=== PATIENT | male | born 1960 | race Caucasian/White ===

== ENCOUNTER 2019-03-30 19:48 | Inpatient (IN) ==
[2019-03-30 20:55] LABS: ABG Base Excess 4 mEq/L (-2 to 3); ABG HCO3 27 mEq/L (21-27); ABG Oxygen Saturation 96 % (95-98); ABG PCO2 35 mmHg (35-45); ABG PO2 76 mmHg (85-104); ABG TCO2 28 mEq/L (20-26)
[2019-03-30 21:14] LABS: Hematocrit 38.8 % (37.5-50.1); Hemoglobin 13.8 g/dL (12.9-16.9); Mean Corpuscular HGB Conc 35.6 g/dL (31.6-35.5); Mean Corpuscular Hemoglobin 34.9 pg (28.0-33.3); Mean Corpuscular Volume 98.2 fL (83.0-100.0); Mean Platelet Volume 9.4 fL (9.4-12.4); Platelet Count 302 K/mcL (140-400); Red Blood Count 3.95 M/mcL (4.19-5.50); Red Cell Distribution Width 12.5 % (11.5-14.5); White Blood Count 11.1 K/mcL (4.3-11.1)
[2019-03-30 21:25] LABS: Albumin 3.7 g/dL (3.5-5.7); BUN/Creatinine Ratio 14 (6-26); Bilirubin,Direct 0.1 mg/dL (0.0-0.2); Bilirubin,Indirect 0.4 mg/dL (0.0-1.0); Bilirubin,Total 0.5 mg/dL (0.3-1.0); Blood Urea Nitrogen 13 mg/dL (6-20); Calcium 9.3 mg/dL (8.6-10.3); Carbon Dioxide 25 mEq/L (23-29); Chloride 99 mEq/L (98-107); Globulin 3.6 g/dL (2.4-3.5); Glucose 114 mg/dL (70-105); Osmolality,Calculated 279 (280-300); Potassium 3.6 mEq/L (3.5-5.1); Sodium 134 mEq/L (136-145); Total Protein 7.3 g/dL (6.4-8.9); eGFR For African Americans > 60 (> 60); eGFR For Non-African Americans > 60 (> 60)
[2019-03-30 21:35] LABS: Lymphocytes # 4.2 K/mcL (0.6-4.6); Monocytes # 0.9 K/mcL (0.0-1.3)
[2019-03-30 21:36] LABS: Platelet Estimate Normal (Normal); Poikilocytosis 1+ (Not Present); Reactive Lymphocytes Present (Not Present); Toxic Vacuolation Present (Not Present)
[2019-03-30] MEDS ORDERED: 0.9 % Sodium Chloride 1,000 ML IVC ONE (21:48)
[2019-03-30 22:26] LABS: Troponin I 0.04 ng/mL (< 0.04)
[2019-03-30] MEDS ORDERED: Aspirin 81 MG TAB.CHEW PO STA (22:47)
[2019-03-30] MEDS ORDERED: Folic Acid 1 MG TABLET PO ONE (23:17)
[2019-03-30] MEDS: Multivit/Ca/Min/Fe/FA 1 TAB TABLET PO SCH (23:39)
[2019-03-30] MEDS: Thiamine (B-1) 100 MG TABLET PO SCH (23:40)
[2019-03-31] MEDS ORDERED: Ondansetron ODT 4 MG TAB.RAPDIS SL PRN (00:40)
[2019-03-31] MEDS ORDERED: Naloxone 0.4 MG/ML INJ IVP PRN (00:40)
[2019-03-31] MEDS ORDERED: *HR* LORazepam 2 MG/ML VIAL IVP PRN ×3 (01:17)
[2019-03-31 01:22] LABS: Bilirubin,Urine Negative (Negative); Blood,Urine Small (Negative); Clarity,Urine Clear (Clear); Color,Urine Yellow (Yellow); Glucose,Urine (UA) Normal (Normal); Ketones,Urine Negative (Negative); Leukocyte Esterase,Urine Large (Negative); Nitrite,Urine Positive (Negative); Protein,Urine Negative (Neg-Trace); Urobilinogen,Urine Normal (Normal)
[2019-03-31 01:26] LABS: Bacteria,Urine Many per hpf (None-Few); Hyaline Casts,Urine None Seen per lpf (None-Few); RBC,Urine 0-3 per hpf (0-3); Squamous Epithelial Cell,Urine None Seen per lpf (None-Few); WBC,Urine 15-30 per hpf (0-3)
[2019-03-31 01:32] LABS: Amphetamine Screen,Urine Negative ng/mL (Cutoff=1000); Barbiturate Screen,Urine Negative ng/mL (Cutoff=200); Benzodiazepines Screen,Urine Negative ng/mL (Cutoff=200); Cannabinoid Screen,Urine Negative ng/mL (Cutoff = 50); Cocaine Screen,Urine Negative ng/mL (Cutoff= 300); Opiate Screen,Urine Negative ng/mL (Cutoff=300); Phencyclidine Screen,Urine Negative ng/mL (Cutoff=25)
[2019-03-31 01:58] LABS: Basophils # 0.1 K/mcL (0.0-0.2); Basophils % 0.6 %; Eosinophils % 0.3 %; Hematocrit 38.6 % (37.5-50.1); Hemoglobin 13.5 g/dL (12.9-16.9); Immature Granulocytes % 0.6 % (0-4); Lymphocytes # 2.2 K/mcL (0.6-4.6); Lymphocytes % 20.2 %; Mean Corpuscular Hemoglobin 34.4 pg (28.0-33.3); Mean Corpuscular Volume 98.2 fL (83.0-100.0); Mean Platelet Volume 9.2 fL (9.4-12.4); Monocytes # 1.9 K/mcL (0.0-1.3); Monocytes % 17.5 %; Neutrophils # 6.6 K/mcL (1.6-8.9); Platelet Count 289 K/mcL (140-400); Red Blood Count 3.93 M/mcL (4.19-5.50); Red Cell Distribution Width 12.6 % (11.5-14.5); Segmented Neutrophils % 60.8 %; White Blood Count 10.9 K/mcL (4.3-11.1)
[2019-03-31 02:14] LABS: BUN/Creatinine Ratio 13 (6-26); Blood Urea Nitrogen 10 mg/dL (6-20); Calcium 8.8 mg/dL (8.6-10.3); Carbon Dioxide 25 mEq/L (23-29); Chloride 103 mEq/L (98-107); Glucose 108 mg/dL (70-105); Osmolality,Calculated 278 (280-300); Potassium 3.5 mEq/L (3.5-5.1); Sodium 134 mEq/L (136-145); eGFR For African Americans > 60 (> 60); eGFR For Non-African Americans > 60 (> 60)
[2019-03-31] MEDS ORDERED: amLODIPine 5 MG TABLET PO SCH (04:00)
[2019-03-31] MEDS: Ipratropium/Albuterol Neb 3 ML IH SCH ×4 (04:23→21:58)
[2019-03-31] MEDS: *HR* Heparin 5,000 UNIT/ML VIAL SQ SCH ×2 (05:27→16:55)
[2019-03-31] MEDS: Multivit/Ca/Min/Fe/FA 1 TAB TABLET PO SCH (09:09)
[2019-03-31] MEDS: Thiamine (B-1) 100 MG TABLET PO SCH (09:09)
[2019-03-31] MEDS: cefTRIAXone 2,000 MG in Water for inj. (sterile) 20 ML IVP SCH (09:12)
[2019-04-01] MEDS: Ipratropium/Albuterol Neb 3 ML IH SCH ×4 (04:09→22:17)
[2019-04-01] MEDS: *HR* Heparin 5,000 UNIT/ML VIAL SQ SCH ×2 (04:15→16:29)
[2019-04-01 06:15] LABS: Hematocrit 41.2 % (37.5-50.1); Hemoglobin 14.1 g/dL (12.9-16.9); Mean Corpuscular HGB Conc 34.2 g/dL (31.6-35.5); Mean Corpuscular Hemoglobin 34.1 pg (28.0-33.3); Mean Corpuscular Volume 99.8 fL (83.0-100.0); Mean Platelet Volume 9.5 fL (9.4-12.4); Platelet Count 329 K/mcL (140-400); Red Blood Count 4.13 M/mcL (4.19-5.50); Red Cell Distribution Width 12.5 % (11.5-14.5); White Blood Count 10.8 K/mcL (4.3-11.1)
[2019-04-01 06:35] LABS: BUN/Creatinine Ratio 16 (6-26); Blood Urea Nitrogen 12 mg/dL (6-20); Calcium 9.3 mg/dL (8.6-10.3); Carbon Dioxide 27 mEq/L (23-29); Chloride 101 mEq/L (98-107); Glucose 124 mg/dL (70-105); Osmolality,Calculated 283 (280-300); Potassium 3.9 mEq/L (3.5-5.1); Sodium 136 mEq/L (136-145); eGFR For African Americans > 60 (> 60); eGFR For Non-African Americans > 60 (> 60)
[2019-04-01] MEDS ORDERED: Metoprolol XL (24 HR) Succ 25 MG TAB.ER.24H PO SCH (09:00)
[2019-04-01] MEDS: cefTRIAXone 2,000 MG in Water for inj. (sterile) 20 ML IVP SCH (09:02)
[2019-04-01] MEDS: Thiamine (B-1) 100 MG TABLET PO SCH (09:05)
[2019-04-01] MEDS: Multivit/Ca/Min/Fe/FA 1 TAB TABLET PO SCH (09:05)
[2019-04-01] MEDS: amLODIPine 5 MG TABLET PO SCH (09:05)
[2019-04-01] MEDS: Budesonide/Formoterol 80/4.5 1 PUFF INH IH SCH ×2 (11:14→22:18)
[2019-04-01 13:00] LABS: Amphetamine Screen,Urine Negative ng/mL (Cutoff=1000); Barbiturate Screen,Urine Negative ng/mL (Cutoff=200); Benzodiazepines Screen,Urine Negative ng/mL (Cutoff=200); Cannabinoid Screen,Urine Negative ng/mL (Cutoff = 50); Cocaine Screen,Urine Negative ng/mL (Cutoff= 300); Opiate Screen,Urine Negative ng/mL (Cutoff=300); Phencyclidine Screen,Urine Negative ng/mL (Cutoff=25)
[2019-04-02] MEDS: Ipratropium/Albuterol Neb 3 ML IH SCH ×4 (04:16→22:45)
[2019-04-02] MEDS: *HR* Heparin 5,000 UNIT/ML VIAL SQ SCH ×2 (05:00→15:56)
[2019-04-02] MEDS ORDERED: Potassium Chloride Elixir 20 MEQ/15 ML UDC PO ONE (07:22)
[2019-04-02] MEDS: Thiamine (B-1) 100 MG TABLET PO SCH (08:21)
[2019-04-02] MEDS: amLODIPine 5 MG TABLET PO SCH (08:21)
[2019-04-02] MEDS: Multivit/Ca/Min/Fe/FA 1 TAB TABLET PO SCH (08:21)
[2019-04-02] MEDS: Metoprolol XL (24 HR) Succ 50 MG TAB.ER.24H PO SCH (08:21)
[2019-04-02] MEDS ORDERED: Perflutren Lipid Microsphere 1.3 ML in 0.9 % Sodium Chloride 8.7 ML IVP ONE (09:54)
[2019-04-02] MEDS: Budesonide/Formoterol 80/4.5 1 PUFF INH IH SCH ×2 (10:42→22:46)
[2019-04-02] MEDS: cephALEXin 500 MG CAPSULE PO SCH ×2 (15:57→22:14)
[2019-04-03] MEDS: Ipratropium/Albuterol Neb 3 ML IH SCH ×3 (04:01→15:32)
[2019-04-03] MEDS: *HR* Heparin 5,000 UNIT/ML VIAL SQ SCH (05:25)
[2019-04-03] MEDS: Metoprolol XL (24 HR) Succ 50 MG TAB.ER.24H PO SCH (08:06)
[2019-04-03] MEDS: cephALEXin 500 MG CAPSULE PO SCH ×2 (08:07→15:05)
[2019-04-03] MEDS: Multivit/Ca/Min/Fe/FA 1 TAB TABLET PO SCH (08:07)
[2019-04-03] MEDS: amLODIPine 5 MG TABLET PO SCH (08:07)
[2019-04-03] MEDS: Thiamine (B-1) 100 MG TABLET PO SCH (08:07)
[2019-04-03] MEDS ORDERED: ISOVUE-370 200 ML INFUS..BTL ONE (08:56)
[2019-04-03] MEDS ORDERED: *HR* FentaNYL (PF) 100 MCG/2 ML VIAL ONE (09:07)
[2019-04-03] MEDS ORDERED: *HR* Midazolam HCl 2 MG/2 ML VIAL ONE (09:07)
[2019-04-03] MEDS ORDERED: Verapamil 5 MG/2 ML VIAL ONE (09:11)
[2019-04-03] MEDS: Budesonide/Formoterol 80/4.5 1 PUFF INH IH SCH (10:38)
[2019-04-03 15:09] VITALS: BP 128/86
== END 2019-04-03 17:18 | disposition home or self-care (01) | DRG 816 ==
LOC: 3BNU 19:48 → EMEROOARM 19:48 → SUATTDRO 23:27 → 3BNU 23:55
PROVIDERS: ADMIT Family Medicine; ATTEND Internal Medicine

== ENCOUNTER 2019-07-23 17:31 | Inpatient (IN) ==
[2019-07-23 18:37] LABS: Basophils # 0.1 K/mcL (0.0-0.2); Basophils % 0.3 %; Eosinophils % 0.1 %; Hematocrit 35.2 % (37.5-50.1); Hemoglobin 11.9 g/dL (12.9-16.9); Immature Granulocytes % 0.5 % (0-4); Lymphocytes # 1.6 K/mcL (0.6-4.6); Lymphocytes % 10.2 %; Mean Corpuscular HGB Conc 33.8 g/dL (31.6-35.5); Mean Corpuscular Hemoglobin 30.7 pg (28.0-33.3); Mean Platelet Volume 9.5 fL (9.4-12.4); Monocytes # 2.2 K/mcL (0.0-1.3); Platelet Count 279 K/mcL (140-400); Red Blood Count 3.87 M/mcL (4.19-5.50); Segmented Neutrophils % 74.9 %; White Blood Count 16.1 K/mcL (4.3-11.1)
[2019-07-23 19:03] LABS: Alanine Aminotransferase 14 Units/L (7-52); Albumin 3.6 g/dL (3.5-5.7); Albumin/Globulin Ratio 1.1 (1.1-2.2); Alkaline Phosphatase 53 Units/L (34-104); Aspartate Amino Transferase 16 Units/L (13-39); BUN/Creatinine Ratio 15 (6-26); Bilirubin,Direct 0.1 mg/dL (0.0-0.2); Bilirubin,Indirect 0.5 mg/dL (0.0-1.0); Bilirubin,Total 0.6 mg/dL (0.3-1.0); Blood Urea Nitrogen 17 mg/dL (6-20); Calcium 9.5 mg/dL (8.6-10.3); Carbon Dioxide 24 mEq/L (23-29); Chloride 103 mEq/L (98-107); Globulin 3.2 g/dL (2.4-3.5); Glucose 101 mg/dL (70-105); Lipase 17 Units/L (11-82); Osmolality,Calculated 280 (280-300); Potassium 3.6 mEq/L (3.5-5.1); Sodium 134 mEq/L (136-145); Total Protein 6.8 g/dL (6.4-8.9); Troponin I < 0.03 ng/mL (< 0.04); eGFR For African Americans > 60 (> 60); eGFR For Non-African Americans > 60 (> 60)
[2019-07-23] MEDS ORDERED: cefTRIAXone 1,000 MG in Water for inj. (sterile) 10 ML IVP ONE (20:03)
[2019-07-23 20:32] LABS: Bilirubin,Urine Negative (Negative); Blood,Urine Moderate (Negative); Clarity,Urine Cloudy (Clear); Color,Urine Yellow (Yellow); Glucose,Urine (UA) Normal (Normal); Ketones,Urine Negative (Negative); Leukocyte Esterase,Urine Large (Negative); Nitrite,Urine Positive (Negative); PH,Urine 5.5 pH Units (5.0-8.0); Protein,Urine 30 mg/dL (Neg-Trace); Specific Gravity,Urine 1.027 (1.010-1.025); Urobilinogen,Urine Normal (Normal)
[2019-07-23 20:35] LABS: Bacteria,Urine Many per hpf (None-Few); Hyaline Casts,Urine None Seen per lpf (None-Few); Squamous Epithelial Cell,Urine None Seen per lpf (None-Few); WBC,Urine TNTC per hpf (0-3)
[2019-07-23] MEDS ORDERED: 0.9 % Sodium Chloride 1,000 ML IVC ONE (20:37)
[2019-07-23] MEDS ORDERED: Acetaminophen 325 MG TABLET PO STA (20:54)
[2019-07-23] MEDS ORDERED: Ondansetron 4 MG/2 ML VIAL IVP PRN (21:39)
[2019-07-23] MEDS ORDERED: Naloxone 0.4 MG/ML INJ IVP PRN (21:39)
[2019-07-23] MEDS ORDERED: 0.9 % Sodium Chloride 1,000 ML IVC SCH (21:45)
[2019-07-23] MEDS ORDERED: *HR* LORazepam 2 MG/ML VIAL IVP PRN ×3 (21:51)
[2019-07-23] MEDS ORDERED: Ketorolac 30 MG/ML VIAL IVP PRN (22:18)
[2019-07-23] MEDS ORDERED: Ipratropium/Albuterol Neb 3 ML IH PRN (22:45)
[2019-07-24] MEDS: cefTRIAXone 1,000 MG in Water for inj. (sterile) 10 ML IVPB SCH ×2 (00:25→08:22)
[2019-07-24 05:36] LABS: Basophils % 0.2 %; Hematocrit 35.9 % (37.5-50.1); Hemoglobin 11.3 g/dL (12.9-16.9); Immature Granulocytes % 0.6 % (0-4); Lymphocytes % 14.1 %; Mean Corpuscular HGB Conc 31.5 g/dL (31.6-35.5); Mean Corpuscular Hemoglobin 30.3 pg (28.0-33.3); Mean Corpuscular Volume 96.2 fL (83.0-100.0); Mean Platelet Volume 9.6 fL (9.4-12.4); Monocytes # 2.1 K/mcL (0.0-1.3); Monocytes % 9.6 %; Neutrophils # 16.3 K/mcL (1.6-8.9); Platelet Count 242 K/mcL (140-400); Red Blood Count 3.73 M/mcL (4.19-5.50); Red Cell Distribution Width 17.1 % (11.5-14.5); Segmented Neutrophils % 75.5 %; White Blood Count 21.6 K/mcL (4.3-11.1)
[2019-07-24 05:39] LABS: INR 1.3; Prothrombin Time 14.2 Seconds (9.4-12.1)
[2019-07-24 06:03] LABS: Albumin 3.4 g/dL (3.5-5.7); Bilirubin,Total 0.6 mg/dL (0.3-1.0); Calcium 8.8 mg/dL (8.6-10.3); Globulin 3.4 g/dL (2.4-3.5); Potassium 3.8 mEq/L (3.5-5.1); Total Protein 6.8 g/dL (6.4-8.9)
[2019-07-24] MEDS ORDERED: Acetaminophen 325 MG TABLET PO PRN (07:32)
[2019-07-24] MEDS ORDERED: *HR* OxyCODONE Immed Rel 5 MG TABLET PO PRN ×2 (07:32→14:35)
[2019-07-24] MEDS ORDERED: Ringers Solution, Lactated 1,000 ML IVC SCH (07:45)
[2019-07-24] MEDS ORDERED: amLODIPine 5 MG TABLET PO SCH (09:00)
[2019-07-24] MEDS ORDERED: Budesonide/Formoterol 80/4.5 1 PUFF INH IH SCH (10:00)
[2019-07-24 10:22] LABS: Acinetobacter baumannii by PCR Not Detected (Not Detect); Candida albicans by PCR Not Detected (Not Detect); Candida glabrata by PCR Not Detected (Not Detect); Candida krusei by PCR Not Detected (Not Detect); Candida parapsilosis by PCR Not Detected (Not Detect); Candida tropicalis by PCR Not Detected (Not Detect); Enterobacter cloacae Cmplx PCR Not Detected (Not Detect); Enterococcus by PCR Not Detected (Not Detect); Escherichia coli by PCR DETECTED (Not Detect); Klebsiella oxytoca by PCR Not Detected (Not Detect); Klebsiella pneumoniae by PCR Not Detected (Not Detect); Proteus by PCR Not Detected (Not Detect); Pseudomonas aeruginosa by PCR Not Detected (Not Detect); Serratia marcescens by PCR Not Detected (Not Detect); Staphylococcus aureus by PCR Not Detected (Not Detect); Staphylococcus by PCR Not Detected (Not Detect); Streptococcus agalactiae(B)PCR Not Detected (Not Detect); Streptococcus by PCR Not Detected (Not Detect); Streptococcus pneumoniae PCR Not Detected (Not Detect); Streptococcus pyogenes (A) PCR Not Detected (Not Detect); blaKPC Carbapenem-Resist Gene Not Detected (Not Detect)
[2019-07-24] MEDS ORDERED: 0.9 % Sodium Chloride 1,000 ML IVC ONE (11:14)
[2019-07-24] MEDS ORDERED: Ondansetron 4 MG/2 ML VIAL ONE (11:58)
[2019-07-24] MEDS ORDERED: Dexamethasone 4 MG/ML VIAL ONE (11:58)
[2019-07-24] MEDS ORDERED: *HR* Propofol 200 MG/20 ML VIAL IVP ONE (11:58)
[2019-07-24] MEDS ORDERED: *HR* FentaNYL (PF) 100 MCG/2 ML VIAL ONE (11:58)
[2019-07-24] MEDS ORDERED: Lidocaine -MPF 2% 2 ML VIAL ONE (11:58)
[2019-07-24] MEDS ORDERED: *HR* Midazolam HCl 2 MG/2 ML VIAL ONE (11:58)
[2019-07-24] MEDS ORDERED: *HR* Etomidate 40 MG/20 ML VIAL IVP ONE (12:09)
[2019-07-24] MEDS ORDERED: *HR* HYDROMORPHONE 2 MG/ML VIAL ONE (12:16)
[2019-07-24] MEDS ORDERED: Gentamicin 80 MG/2 ML VIAL ONE (12:20)
[2019-07-24] MEDS ORDERED: Gentamicin 80 MG in 0.9 % Sodium Chloride 100 ML IVPB SCH (13:00)
[2019-07-24] MEDS ORDERED: Albuterol 2.5 MG/3 ML NEBULIZER ONE (13:01)
[2019-07-24] MEDS ORDERED: Gentamicin 130 MG in 0.9 % Sodium Chloride 100 ML IVPB ONE (13:15)
[2019-07-24] MEDS ORDERED: *HR* Labetalol 20 MG/4 ML SYRINGE IVP ONE (13:28)
[2019-07-24] MEDS ORDERED: *HR* Labetalol 20 MG/4 ML SYRINGE IVP PRN (13:37)
[2019-07-24] MEDS ORDERED: Gentamicin 80 MG in 0.9 % Sodium Chloride 100 ML IVPB ONE (14:00)
[2019-07-24] MEDS ORDERED: Isovue-370 500 ML BOTTLE IVP ONE (14:35)
[2019-07-24] MEDS ORDERED: Ipratropium/Albuterol Neb 3 ML IH PRN (14:35)
[2019-07-24] MEDS ORDERED: Naloxone 0.4 MG/ML INJ IVP PRN (14:35)
[2019-07-24] MEDS ORDERED: Ondansetron 4 MG/2 ML VIAL IVP PRN (14:35)
[2019-07-24] MEDS: *HR* Heparin 5,000 UNIT/ML VIAL SQ SCH (17:50)
[2019-07-24] MEDS: Acetaminophen 325 MG TABLET PO PRN (17:51)
[2019-07-24] MEDS ORDERED: Thiamine (B-1) 100 MG, Folic Acid 1 MG, MVI, adult with vitamin K 10 ML in 0.9 % Sodi... IVPB SCH (18:00)
[2019-07-24] MEDS ORDERED: *HR* Heparin 5,000 UNIT/ML VIAL SQ SCH (18:00)
[2019-07-24] MEDS: Budesonide/Formoterol 80/4.5 1 PUFF INH IH SCH (21:08)
[2019-07-24] MEDS: Ringers Solution, Lactated 1,000 ML IVC SCH (22:59)
[2019-07-25] MEDS ORDERED: Gentamicin 110 MG in 0.9 % Sodium Chloride 100 ML IVPB SCH (02:00)
[2019-07-25] MEDS: *HR* Heparin 5,000 UNIT/ML VIAL SQ SCH ×2 (04:50→18:45)
[2019-07-25] MEDS: Nicotine 14 MG PATCH.TD24 TD SCH (05:12)
[2019-07-25 08:00] LABS: Basophils % 0.2 %; Eosinophils % 0.1 %; Hematocrit 37.1 % (37.5-50.1); Hemoglobin 11.9 g/dL (12.9-16.9); Immature Granulocytes % 0.7 % (0-4); Lymphocytes # 2.2 K/mcL (0.6-4.6); Lymphocytes % 11.8 %; Mean Corpuscular HGB Conc 32.1 g/dL (31.6-35.5); Mean Corpuscular Hemoglobin 30.4 pg (28.0-33.3); Mean Corpuscular Volume 94.9 fL (83.0-100.0); Monocytes # 1.3 K/mcL (0.0-1.3); Monocytes % 6.8 %; Neutrophils # 15.1 K/mcL (1.6-8.9); Platelet Count 253 K/mcL (140-400); Red Blood Count 3.91 M/mcL (4.19-5.50); Red Cell Distribution Width 17.1 % (11.5-14.5); Segmented Neutrophils % 80.4 %; White Blood Count 18.8 K/mcL (4.3-11.1)
[2019-07-25 08:20] LABS: BUN/Creatinine Ratio 19 (6-26); Blood Urea Nitrogen 21 mg/dL (6-20); Calcium 9.6 mg/dL (8.6-10.3); Carbon Dioxide 25 mEq/L (23-29); Chloride 102 mEq/L (98-107); Glucose 135 mg/dL (70-105); Osmolality,Calculated 291 (280-300); Potassium 3.6 mEq/L (3.5-5.1); Sodium 138 mEq/L (136-145); eGFR For African Americans > 60 (> 60); eGFR For Non-African Americans > 60 (> 60)
[2019-07-25] MEDS ORDERED: cefTRIAXone 2,000 MG in Water for inj. (sterile) 20 ML IVP SCH (09:00)
[2019-07-25] MEDS: Ringers Solution, Lactated 1,000 ML IVC SCH ×2 (09:04→10:47)
[2019-07-25] MEDS: cefTRIAXone 2,000 MG in Water for inj. (sterile) 20 ML IVP SCH (09:04)
[2019-07-25] MEDS: Budesonide/Formoterol 80/4.5 1 PUFF INH IH SCH ×2 (10:55→19:25)
[2019-07-26 05:28] LABS: Basophils % 0.4 %; Eosinophils # 0.1 K/mcL (0.0-0.6); Eosinophils % 1.4 %; Hematocrit 34.7 % (37.5-50.1); Hemoglobin 11.2 g/dL (12.9-16.9); Immature Granulocytes % 0.3 % (0-4); Lymphocytes # 1.9 K/mcL (0.6-4.6); Lymphocytes % 19.9 %; Mean Corpuscular HGB Conc 32.3 g/dL (31.6-35.5); Mean Corpuscular Hemoglobin 30.1 pg (28.0-33.3); Mean Corpuscular Volume 93.3 fL (83.0-100.0); Mean Platelet Volume 9.8 fL (9.4-12.4); Monocytes # 1.2 K/mcL (0.0-1.3); Monocytes % 13.1 %; Neutrophils # 6.1 K/mcL (1.6-8.9); Platelet Count 252 K/mcL (140-400); Red Blood Count 3.72 M/mcL (4.19-5.50); Red Cell Distribution Width 17.1 % (11.5-14.5); Segmented Neutrophils % 64.9 %
[2019-07-26 05:30] LABS: White Blood Count 9.4 K/mcL (4.3-11.1)
[2019-07-26 05:52] LABS: BUN/Creatinine Ratio 20 (6-26); Blood Urea Nitrogen 20 mg/dL (6-20); Carbon Dioxide 26 mEq/L (23-29); Chloride 108 mEq/L (98-107); Glucose 107 mg/dL (70-105); Osmolality,Calculated 289 (280-300); Sodium 138 mEq/L (136-145); eGFR For African Americans > 60 (> 60); eGFR For Non-African Americans > 60 (> 60)
[2019-07-26] MEDS: *HR* Heparin 5,000 UNIT/ML VIAL SQ SCH (06:14)
[2019-07-26] MEDS: Nicotine 14 MG PATCH.TD24 TD SCH (06:15)
[2019-07-26] MEDS: Acetaminophen 325 MG TABLET PO PRN (06:26)
[2019-07-26 07:02] VITALS: BP 151/89
[2019-07-26] MEDS: Budesonide/Formoterol 80/4.5 1 PUFF INH IH SCH (07:31)
[2019-07-26] MEDS: cefTRIAXone 2,000 MG in Water for inj. (sterile) 20 ML IVP SCH (08:28)
[2019-07-26] MEDS: Ringers Solution, Lactated 1,000 ML IVC SCH (08:29)
== END 2019-07-26 10:06 | disposition home or self-care (01) | DRG 720 ==
LOC: EMEROOARM 17:31 → 3ANU 17:31 → SUATTDRO 21:39 → 3ANU 21:56
PROVIDERS: ADMIT Student in an Organized Health Care Education/Training Program; ATTEND Internal Medicine